=== PATIENT | female | born 2000 | race Two or more races ===

== ENCOUNTER 2019-03-16 11:37 | Emergency (ER) | payer OTHER ==
[~2019-03-16] VITALS: Ht 177.8 cm; Wt 72.7 kg
[2019-03-16] MEDS ORDERED: KETOROLAC 60 MG/2 ML VIAL (J1885) IM ONE (12:00)
--- NOTE | 2019-03-16 12:44 | REP ---
LEFT RIB SERIES: Four views of the left ribs performed. There is no evidence of fracture or bone lesion. An accompanying view of the chest demonstrates no acute infiltrate or pneumothorax. No pleural effusion is seen. The heart and mediastinum are within normal limits. IMPRESSION: Negative left rib series. Electronically Signed by Surendra Cleaning MD 03/16/2019 01:05 P
[2019-03-16] MEDS ORDERED: KETO10TAB PO (13:12)
[2019-03-16 13:18] VITALS: BP 109/58
== END 2019-03-16 13:19 | disposition home or self-care (01) ==
LOC: M ED 11:37
DX: M94.0 Chondrocostal junction syndrome [Tietze] (principal); Z88.0 Allergy status to penicillin
CPT/HCPCS: 71101; 96372; 99283; J1885

== ENCOUNTER → 2019-03-25 | Outpatient (CLI) | payer OTHER ==
[~2019-03-25] MED LIST: KETO10TAB PO
--- NOTE | 2019-03-25 20:34 | REP ---
CT CHEST WITHOUT IV CONTRAST: CT chest performed without IV contrast. Sagittal and coronal reconstruction images are performed. Both lungs are clear with no infiltrate. Heart is not enlarged. No axillary adenopathy is seen. There is no evidence of thoracic aortic aneurysm. There is no pleural or pericardial effusion. No gross mediastinal contour abnormality is seen. There does appear to be mild pectus excavatum and deformity, borderline moderate in severity. The Mukul index is approximately 3.2. IMPRESSION: Mild to moderate pectus excavatum deformity. Unreviewed
== END ==
LOC: M RAD 17:24
PROVIDERS: ATTEND Family Medicine
DX: Q67.6 Pectus excavatum (principal)

== ENCOUNTER → 2019-04-03 | Outpatient (REF) | payer OTHER | LOC: M SFHCLERA 11:07 | PROVIDERS: ATTEND Physician Assistant | DX: R50.9 Fever, unspecified (principal) ==

== ENCOUNTER → 2019-08-12 | Outpatient (CLI) | payer OTHER | LOC: M LABSMTC 13:11 | PROVIDERS: ATTEND Family Medicine | DX: Z11.59 Encounter for screening for other viral diseases (principal); Z20.828 Contact with and (suspected) exposure to other viral communicable diseases ==

== ENCOUNTER 2019-09-23 05:25 | Emergency (ER) | payer OTHER ==
[~2019-09-23] VITALS: Ht 180.3 cm; Wt 88.8 kg
[2019-09-23] MEDS ORDERED: PROT1TAB2 (05:50)
[2019-09-23 06:18] LABS: BASO # 0.1 10^3/uL (0.0-0.2); BASO % 0.7 % (0.0-1.0); EOS # 0.2 10^3/uL (0.0-0.5); HEMATOCRIT 41.1 % (36.0-47.0); HEMOGLOBIN 13.7 g/dl (12.0-15.5); LYMPH # 3.7 10^3/uL (1.5-5.0); LYMPH % 40.9 % (24.0-44.0); MEAN CORPUSCULAR HEMOGLOBIN 29.7 pg (27.0-33.0); MEAN CORPUSCULAR HGB CONC 33.3 g/dl (32.0-36.5); MEAN CORPUSCULAR VOLUME 89.2 fl (80.0-96.0); MONO # 0.7 10^3/uL (0.0-0.8); MONO % 8.2 % (0.0-5.0); NEUTROPHILS # 4.3 10^3/uL (1.5-8.5); NEUTROPHILS % 47.9 % (36.0-66.0); PLATELET COUNT, AUTOMATED 322 10^3/uL (150-450); RED BLOOD COUNT 4.61 10^6/uL (4.00-5.40)
[2019-09-23] MEDS ORDERED: ACETAMINOPHEN 325 MG TAB PO ONE (06:30)
[2019-09-23 06:46] LABS: HCG, SERUM QUALITATIVE NEGATIVE (NEGATIVE)
[2019-09-23 06:52] LABS: ALBUMIN 3.6 GM/DL (3.2-5.2); ALT/SGPT 61 U/L (12-78); BILIRUBIN,DIRECT < 0.1 MG/DL (0.0-0.2); BILIRUBIN,TOTAL 0.2 MG/DL (0.2-1.0); BLOOD UREA NITROGEN 14 MG/DL (7-18); CALCIUM LEVEL 9.1 MG/DL (8.5-10.1); CARBON DIOXIDE LEVEL 27 MEQ/L (21-32); CHLORIDE LEVEL 106 MEQ/L (98-107); GLOMERULAR FILTRATION RATE > 60.0 (>60); GLUCOSE, FASTING 89 MG/DL (70-100); LIPASE 268 U/L (73-393); SODIUM LEVEL 138 MEQ/L (136-145)
--- NOTE | 2019-09-23 07:00 | REPVR ---
PROCEDURE INFORMATION: Exam: US Pelvis Complete, Transabdominal and US Pelvis, Transvaginal Exam date and time: 09/23/2019 6:50 AM Age: 19 years old Clinical indication: Pelvic pain; Additional info: R sided pelvic pain TECHNIQUE: Imaging protocol: Real-time transabdominal and transvaginal pelvic ultrasound (complete) with image documentation. Transvaginal imaging was used for better evaluation of the endometrium and adnexa. COMPARISON: No relevant prior studies available. FINDINGS: Uterus/cervix: Uterus measures 6.3 x 2.9 x 3.4 cm. Endometrial stripe measures 4.3 mm in thickness. IUD in the uterus with the tip near the fundus. No uterine masses. Right adnexa: Right ovary measures 3.4 x 2.1 x 3.4 cm. No masses. Normal vascular flow. Left adnexa: Left ovary measures 3.5 x 2.0 x 3.0 cm. No masses. Normal vascular flow. Free fluid: None. Bladder: Bladder is unremarkable. IMPRESSION: 1. Unremarkable uterus. 2. IUD in the uterus. Electronically signed by: Aurea Person On 09/23/2019 07:00:21 AM
[2019-09-23] MEDS ORDERED: ISOVUE-370 76% 100ML VIAL As Ordered ONE (07:11)
--- NOTE | 2019-09-23 07:51 | REPVR ---
PROCEDURE INFORMATION: Exam: CT Abdomen And Pelvis With Contrast Exam date and time: 09/23/2019 7:19 AM Age: 19 years old Clinical indication: Abdominal pain; Localized; Right lower quadrant (rlq); Additional info: Rlq pain, negative US TECHNIQUE: Imaging protocol: Computed tomography of the abdomen and pelvis with intravenous contrast. Radiation optimization: All CT scans at this facility use at least one of these dose optimization techniques: automated exposure control; mA and/or kV adjustment per patient size (includes targeted exams where dose is matched to clinical indication); or iterative reconstruction. Contrast material: ISOVUE 370; Contrast volume: 100 ml; Contrast route: IV; COMPARISON: US PELVIC NON-OB COMPLETE 09/23/2019 6:29 AM FINDINGS: Liver: Normal. No mass. Gallbladder and bile ducts: Normal. No calcified stones. No ductal dilation. Pancreas: Normal. No ductal dilation. Spleen: Normal. No splenomegaly. Adrenals: Normal. No mass. Kidneys and ureters: Normal. No hydronephrosis. Stomach and bowel: Severe stool in the colon. No abnormal bowel dilatation. No abnormal bowel wall thickening. Negative for colonic diverticulitis. Appendix: Appendix is normal. Intraperitoneal space: Unremarkable. No free air. No significant fluid collection. Vasculature: Unremarkable. No abdominal aortic aneurysm. Lymph nodes: Unremarkable. No enlarged lymph nodes. Bladder: Unremarkable as visualized. Reproductive: IUD in the uterus. Bones/joints: No acute fracture. Pectus excavatum. Soft tissues: Unremarkable. IMPRESSION: 1. Appendix is unremarkable. 2. Severe stool in the colon. 3. No evidence of bowel obstruction. Electronically signed by: Aurea Person On 09/23/2019 07:50:53 AM
[2019-09-23 07:57] LABS: AMPHETAMINES LEVEL URINE NEGATIVE (NEGATIVE); BARBITURATES URINE NEGATIVE (NEGATIVE); BENZODIAZEPINES URINE NEGATIVE (NEGATIVE); CANNABINOIDS URINE NEGATIVE (NEGATIVE); COCAINE METABOLITE URINE NEGATIVE (NEGATIVE); METHADONE URINE NEGATIVE (NEGATIVE); OPIATES URINE NEGATIVE (NEGATIVE); PHENCYCLIDINE URINE NEGATIVE (NEGATIVE)
[2019-09-23 08:00] VITALS: BP 131/77
[2019-09-23] MEDS ORDERED: COLA100C5 PO (08:01)
[2019-09-23] MEDS ORDERED: GLYCERIN ADULT SUPP PR ONE (08:15)
[2019-09-23] MEDS ORDERED: MAGNESIUM CITRATE 300 ML BTL PO ONE (08:15)
== END 2019-09-23 08:29 | disposition home or self-care (01) ==
LOC: M ED 05:25
DX: K59.00 Constipation, unspecified (principal); R10.31 Right lower quadrant pain; R11.2 Nausea with vomiting, unspecified; F12.10 Cannabis abuse, uncomplicated; Z97.5 Presence of (intrauterine) contraceptive device; Z88.0 Allergy status to penicillin
CPT/HCPCS: 74177; 76830; 76856; 80048; 80076; 80307; 81001; 83690; 84703; 85025; 93041; 93976; 99284; Q9967

== ENCOUNTER 2019-11-16 11:51 | Emergency (ER) | payer OTHER ==
[~2019-11-16 11:51] MED LIST changes: +COLA100C5 PO; +PROT1TAB2
[2019-11-16] MEDS ORDERED: ONDANSETRON 4MG/2ML VIAL ONE (12:22)
[2019-11-16] MEDS ORDERED: ONDANSETRON 4MG/2ML VIAL As Ordered ONE (12:22)
[2019-12-13 19:55] LABS: HEMOGLOBIN 13.8 g/dl (12.0-15.5); MEAN CORPUSCULAR HEMOGLOBIN 29.6 pg (27.0-33.0); MEAN CORPUSCULAR HGB CONC 33.7 g/dl (32.0-36.5); PLATELET COUNT, AUTOMATED 249 10^3/uL (150-450); RED BLOOD COUNT 4.66 10^6/uL (4.00-5.40); WHITE BLOOD COUNT 7.1 10^3/uL (4.0-10.0)
[2019-12-13 20:01] LABS: APPEARANCE, URINE HAZY (CLEAR); BACTERIA, URINE AUTO 3+ (NEGATIVE); BILIRUBIN, URINE AUTO NEGATIVE (NEGATIVE); BLOOD, URINE BLOOD 1+ (NEGATIVE); COLOR, URINE YELLOW (YELLOW); GLUCOSE, URINE (UA) AUTO NEGATIVE (NEGATIVE); KETONE, URINE AUTO NEGATIVE (NEGATIVE); LEUKOCYTE ESTERASE, URINE AUTO TRACE (NEGATIVE); NITRITE, URINE AUTO NEGATIVE (NEGATIVE); PROTEIN, URINE AUTO NEGATIVE (NEGATIVE); RBC, URINE AUTO 1 /HPF (0-3); SPECIFIC GRAVITY URINE AUTO 1.013 (1.002-1.035); SQUAMOUS EPITHELIAL CELL UR AU 1 /HPF (0-6); UROBILINOGEN, URINE AUTO 0.2 mg/dL (0.0-2.0); WBC, URINE AUTO 4 /HPF (0-3)
[2019-12-13 20:05] LABS: INR 1.06; PROTHROMBIN TIME 14.1 SECONDS (11.8-14.0)
[2020-01-05 13:45] LABS: ALBUMIN 4.1 GM/DL (3.2-5.2); ALT/SGPT 27 U/L (12-78); BILIRUBIN,TOTAL 0.4 MG/DL (0.2-1.0); BLOOD UREA NITROGEN 13 MG/DL (7-18); CALCIUM LEVEL 9.4 MG/DL (8.5-10.1); CARBON DIOXIDE LEVEL 27 MEQ/L (21-32); CHLORIDE LEVEL 107 MEQ/L (98-107); CREATININE FOR GFR 0.85 MG/DL (0.55-1.30); GLOMERULAR FILTRATION RATE > 60.0 (>60); GLUCOSE, FASTING 97 MG/DL (70-100); POTASSIUM SERUM 3.9 MEQ/L (3.5-5.1); SODIUM LEVEL 137 MEQ/L (136-145); TOTAL PROTEIN 7.5 GM/DL (6.4-8.2)
[2020-01-13 15:47] LABS: HCG, SERUM QUALITATIVE NEGATIVE (NEGATIVE)
== END 2019-11-16 15:45 | disposition home or self-care (01) ==
LOC: M ED 11:51
DX: N83.201 Unspecified ovarian cyst, right side (principal); Z88.0 Allergy status to penicillin
CPT/HCPCS: 74176; 80053; 81001; 84703; 85027; 85610; 87086; 96374; 99284; J2405

== ENCOUNTER → 2019-11-30 | Outpatient (REF) | payer OTHER ==
[~2019-11-30] MED LIST changes: +GABA-845 PO; +IBUP-1022 PO; +KYLE19.5 IU; +METH1TAB40 PO
== END ==
LOC: M LAB REF 12:43
PROVIDERS: ATTEND Physician Assistant Medical
DX: Z20.828 Contact with and (suspected) exposure to other viral communicable diseases (principal)

== ENCOUNTER 2020-01-16 07:48 | Emergency (ER) | payer OTHER ==
[~2020-01-16] VITALS: Ht 180.3 cm; Wt 97.4 kg
[~2020-01-16 07:48] MED LIST changes: -GABA-845 PO; -IBUP-1022 PO; -KYLE19.5 IU; -METH1TAB40 PO
[2020-01-16] MEDS ORDERED: GABA-845 PO (07:59)
[2020-01-16] MEDS ORDERED: IBUP-1022 PO (07:59)
--- NOTE | 2020-01-16 08:44 | REPVR ---
PROCEDURE INFORMATION: Exam: XR Chest, 2 Views Exam date and time: 01/16/2020 8:09 AM Age: 19 years old Clinical indication: Chest pain; Additional info: Chest pain, SOB 7wk S/P fish bar TECHNIQUE: Imaging protocol: XR of the chest Views: 2 views. COMPARISON: CT Chest without contrast 03/25/2019 5:36 PM FINDINGS: Lungs: No acute infiltrate is seen. Pleural space: No pneumothorax or pleural effusion is seen. Heart/Mediastinum: No cardiomegaly. Bones/joints: The visualized osseous structures are unremarkable. No acute fracture or dislocation is seen. Other findings: A Fish bar is seen overlying the lower chest. IMPRESSION: No acute infiltrate, pneumothorax or pleural effusion is seen. Electronically signed by: Steve Garcia On 01/16/2020 08:44:01 AM
[2020-01-16] MEDS ORDERED: diazePAM 10MG/2ML SYRINGE (J3360 PER 5MG) IV ONE (09:00)
[2020-01-16] MEDS ORDERED: KETOROLAC 30 MG/ML 1ML VIAL IV ONE (09:00)
[2020-01-16] MEDS ORDERED: METH1TAB40 PO (10:22)
[2020-01-16] MEDS ORDERED: KYLE19.5 IU (10:24)
[2020-01-16] MEDS ORDERED: ISOVUE-370 76% 100ML VIAL As Ordered ONE (11:33)
--- NOTE | 2020-01-16 12:15 | REPVR ---
PROCEDURE INFORMATION: Exam: CT Angiography Chest With Contrast Exam date and time: 01/16/2020 11:40 AM Age: 19 years old Clinical indication: Chest pain; Type not specified; Prior surgery; Surgery date: 1-6 months; Surgery type: Frederic placed for pectus excavatum; Additional info: R/O post-op pe TECHNIQUE: Imaging protocol: Computed tomographic angiography of the chest with intravenous contrast. 3D rendering (Not supervised by radiologist): MIP and/or 3D reconstructed images were created by the technologist. Radiation optimization: All CT scans at this facility use at least one of these dose optimization techniques: automated exposure control; mA and/or kV adjustment per patient size (includes targeted exams where dose is matched to clinical indication); or iterative reconstruction. Contrast material: ISOVUE 370; Contrast volume: 75 ml; Contrast route: INTRAVENOUS (IV); COMPARISON: CT Chest without contrast 03/25/2019 5:36 PM FINDINGS: Pulmonary arteries: The pulmonary arteries are adequately opacified. No evidence of pulmonary embolism in the main, central, lobar or segmental pulmonary arteries. Aorta: Unremarkable. No aortic aneurysm. No aortic dissection. Lungs: Mild patchy infiltrate/atelectasis in both lung bases. Remainder of the lungs are clear. Pleural space: Moderate new bilateral pleural effusions. Heart: No cardiomegaly. No pericardial effusion. Lymph nodes: No enlarged lymph nodes. Bones/joints: Unremarkable. No acute fracture. Soft tissues: Examination demonstrates a Geena bar in the anterior lower chest with metallic beam hardening artifact limiting evaluation in this region. IMPRESSION: 1. The pulmonary arteries are adequately opacified. No evidence of pulmonary embolism in the main, central, lobar or segmental pulmonary arteries. 2. Moderate new bilateral pleural effusions. 3. Mild patchy infiltrate/atelectasis in both lung bases. Remainder of the lungs are clear. 4. Examination demonstrates a Geena bar in the anterior lower chest with metallic beam hardening artifact limiting evaluation in this region. Electronically signed by: Steve Garcia On 01/16/2020 12:14:25 PM
[2020-01-16 15:40] VITALS: BP 106/64
--- NOTE | 2020-01-18 07:17 | ED PDOC ---
Post-Departure Follow-Up dr williamson faxed formal report of cta chest for fu Kamila Wilder MD Jan 18, 2020 07:17
== END 2020-01-16 15:43 | disposition home or self-care (01) ==
LOC: M ED 07:48
DX: J90 Pleural effusion, not elsewhere classified (principal); Z88.0 Allergy status to penicillin
CPT/HCPCS: 36415; 71046; 71275; 80047; 96374; 96375; 99285; J1885; J3360; Q9967

== ENCOUNTER → 2021-04-20 | Outpatient (CLI) | payer OTHER ==
[~2021-04-20] MED LIST changes: +GABA-283 PO; +IBUP-1022 PO; +KYLE19.5 IU; +METH-1164 PO
== END ==
LOC: M WUC 13:02
PROVIDERS: ATTEND Physician Assistant
DX: R05.9 Cough, unspecified (principal); R53.83 Other fatigue; Z53.9 Procedure and treatment not carried out, unspecified reason

== ENCOUNTER → 2021-04-21 | Outpatient (REF) | payer OTHER | LOC: M WUC 15:48 | PROVIDERS: ATTEND Physician Assistant | DX: R05.9 Cough, unspecified (principal) ==

== ENCOUNTER → 2021-04-21 | Outpatient (CLI) | payer OTHER ==
[2021-04-21 16:05] LABS: BASO % 0.4 % (0.0-1.0); EOS # 0.2 10^3/uL (0.0-0.5); EOS % 1.5 % (0.0-3.0); HEMATOCRIT 41.1 % (36.0-47.0); HEMOGLOBIN 13.8 g/dl (12.0-15.5); LYMPH # 3.1 10^3/uL (1.5-5.0); LYMPH % 30.8 % (24.0-44.0); MEAN CORPUSCULAR HEMOGLOBIN 29.2 pg (27.0-33.0); MEAN CORPUSCULAR HGB CONC 33.6 g/dl (32.0-36.5); MEAN CORPUSCULAR VOLUME 86.9 fl (80.0-96.0); MONO # 0.8 10^3/uL (0.0-0.8); MONO % 8.3 % (2.0-8.0); NEUTROPHILS # 5.9 10^3/uL (1.5-8.5); NEUTROPHILS % 58.4 % (36.0-66.0); PLATELET COUNT, AUTOMATED 339 10^3/uL (150-450); RED BLOOD COUNT 4.73 10^6/uL (4.00-5.40); WHITE BLOOD COUNT 10.1 10^3/uL (4.0-10.0)
[2021-04-21 16:43] LABS: ALBUMIN 3.7 GM/DL (3.2-5.2); ALT/SGPT 21 U/L (12-78); BILIRUBIN,TOTAL 0.2 MG/DL (0.2-1.0); BLOOD UREA NITROGEN 21 MG/DL (7-18); CALCIUM LEVEL 8.9 MG/DL (8.5-10.1); CARBON DIOXIDE LEVEL 25 MEQ/L (21-32); CHLORIDE LEVEL 111 MEQ/L (98-107); CREATININE FOR GFR 0.81 MG/DL (0.55-1.30); FREE T4 0.83 NG/DL (0.76-1.46); GLOMERULAR FILTRATION RATE > 60.0 (>60); GLUCOSE, FASTING 91 MG/DL (70-100); POTASSIUM SERUM 4.5 MEQ/L (3.5-5.1); SODIUM LEVEL 140 MEQ/L (136-145); TOTAL PROTEIN 7.4 GM/DL (6.4-8.2)
[2021-04-24 16:08] LABS: EBV VIRAL CAPSID AG IgG 51.4 U/mL (0.0-17.9); EBV VIRAL CAPSID AG IgM <36.0 U/mL (0.0-35.9); Lyme Disease IgG/IgM Antibodie <0.91 ISR (0.00-0.90); Lyme Disease IgM Ab Quantitati <0.80 index (0.00-0.79)
== END ==
LOC: M WUC 13:26
PROVIDERS: ATTEND Physician Assistant
DX: R53.83 Other fatigue (principal); R05.9 Cough, unspecified

== ENCOUNTER → 2022-08-28 | Outpatient (CLI) | payer OTHER | LOC: M LAB 09:36 | PROVIDERS: ATTEND Family Medicine | DX: Z01.84 Encounter for antibody response examination (principal) ==

== ENCOUNTER → 2023-05-08 | Outpatient (CLI) | payer OTHER ==
[~2023-05-08] MED LIST changes: -GABA-283 PO; +GABA-284 PO
== END ==
LOC: M RAD 09:55
PROVIDERS: ATTEND Family Medicine
DX: N92.6 Irregular menstruation, unspecified (principal)

== ENCOUNTER 2023-06-10 10:12 | Emergency (ER) | payer OTHER ==
[~2023-06-10] VITALS: Ht 177.8 cm; Wt 113.5 kg
[2023-06-10] MEDS ORDERED: AMPH1CAP16 (10:33)
[2023-06-10 11:39] LABS: BASO # 0.1 10^3/uL (0.0-0.2); BASO % 0.6 % (0.0-1.0); EOS # 0.1 10^3/uL (0.0-0.5); EOS % 0.8 % (0.0-3.0); HEMATOCRIT 42.7 % (36.0-47.0); HEMOGLOBIN 14.5 g/dl (12.0-15.5); LYMPH # 3.2 10^3/uL (1.5-5.0); LYMPH % 38.5 % (24.0-44.0); MEAN CORPUSCULAR VOLUME 88.4 fl (80.0-96.0); MONO # 0.7 10^3/uL (0.0-0.8); MONO % 8.6 % (2.0-8.0); NEUTROPHILS # 4.3 10^3/uL (1.5-8.5); NEUTROPHILS % 51.3 % (36.0-66.0); PLATELET COUNT, AUTOMATED 309 10^3/uL (150-450); RED BLOOD COUNT 4.83 10^6/uL (4.00-5.40); WHITE BLOOD COUNT 8.4 10^3/uL (4.0-10.0)
[2023-06-10 11:56] LABS: APPEARANCE, URINE CLOUDY (CLEAR); BACTERIA, URINE AUTO 1+ (NEGATIVE); BILIRUBIN, URINE AUTO NEGATIVE (NEGATIVE); BLOOD, URINE BLOOD 3+ (NEGATIVE); COLOR, URINE YELLOW (YELLOW); GLUCOSE, URINE (UA) AUTO 1+ mg/dL (NEGATIVE); KETONE, URINE AUTO NEGATIVE (NEGATIVE); LEUKOCYTE ESTERASE, URINE AUTO NEGATIVE (NEGATIVE); MUCUS, URINE SMALL (NEGATIVE); NITRITE, URINE AUTO POSITIVE (NEGATIVE); PROTEIN, URINE AUTO 1+ mg/dL (NEGATIVE); RBC, URINE AUTO 2 /HPF (0-3); SPECIFIC GRAVITY URINE AUTO 1.028 (1.002-1.035); SQUAMOUS EPITHELIAL CELL UR AU 17 /HPF (0-6); UROBILINOGEN, URINE AUTO 0.2 mg/dL (0.0-2.0); WBC, URINE AUTO 1 /HPF (0-3)
[2023-06-10 12:12] LABS: BLOOD UREA NITROGEN 16 MG/DL (9-23); CALCIUM LEVEL 9.3 MG/DL (8.5-10.1); CARBON DIOXIDE LEVEL 24 MMOL/L (20-31); CHLORIDE LEVEL 108 MMOL/L (98-107); CREATININE FOR GFR 0.75 MG/DL (0.55-1.30); GLOMERULAR FILTRATION RATE > 60.0 (>60); GLUCOSE, FASTING 86 MG/DL (60-100); HCG, SERUM QUANTITATIVE < 2.6 MIU/ML (<4.2); POTASSIUM SERUM 4.5 MMOL/L (3.5-5.1); SODIUM LEVEL 138 MMOL/L (136-145)
[2023-06-10] MEDS ORDERED: CIPR-249 PO (14:16)
[2023-06-10 14:36] VITALS: BP 162/58; TEMP 98.1; O2SAT 99
[2023-06-10 14:44] LABS: Trichomonas vaginalis (AMP) NOT DETECTED (NEGATIVE)
[2023-06-10 15:07] LABS: GC DNA AMPLIFICATION NEGATIVE (NEGATIVE)
== END 2023-06-10 14:35 | disposition home or self-care (01) ==
LOC: M ED 10:12
DX: N39.0 Urinary tract infection, site not specified (principal); N93.9 Abnormal uterine and vaginal bleeding, unspecified; E28.2 Polycystic ovarian syndrome; F12.10 Cannabis abuse, uncomplicated; F10.10 Alcohol abuse, uncomplicated; Z88.0 Allergy status to penicillin; Z79.2 Long term (current) use of antibiotics; Z79.899 Other long term (current) drug therapy

== ENCOUNTER → 2023-07-17 | Outpatient (CLI) | payer OTHER ==
[~2023-07-17] MED LIST changes: +AMPH1CAP16; +CIPR-249 PO
[2023-07-17 12:51] LABS: BASO # 0.1 10^3/uL (0.0-0.2); BASO % 0.7 % (0.0-1.0); EOS # 0.1 10^3/uL (0.0-0.5); EOS % 1.3 % (0.0-3.0); HEMATOCRIT 42.3 % (36.0-47.0); HEMOGLOBIN 14.4 g/dl (12.0-15.5); LYMPH # 2.8 10^3/uL (1.5-5.0); LYMPH % 39.3 % (24.0-44.0); MEAN CORPUSCULAR VOLUME 88.1 fl (80.0-96.0); MONO # 0.5 10^3/uL (0.0-0.8); MONO % 7.3 % (2.0-8.0); NEUTROPHILS # 3.6 10^3/uL (1.5-8.5); NEUTROPHILS % 51.3 % (36.0-66.0); PLATELET COUNT, AUTOMATED 303 10^3/uL (150-450)
[2023-07-17 13:06] LABS: HEMOGLOBIN A1c 5.3 % (4.0-6.0)
[2023-07-17 13:07] LABS: ALBUMIN 3.7 G/DL (3.2-5.2); ALKALINE PHOSPHATASE 73 U/L (46-116); ALT/SGPT 24 U/L (7.0-40); AST/SGOT 15 U/L (<34); BILIRUBIN,TOTAL 0.2 MG/DL (0.3-1.2); BLOOD UREA NITROGEN 22 MG/DL (9-23); CALCIUM LEVEL 9.7 MG/DL (8.5-10.1); CARBON DIOXIDE LEVEL 24 MMOL/L (20-31); CHLORIDE LEVEL 109 MMOL/L (98-107); CHOLESTEROL LEVEL 212 MG/DL (<200); CREATININE FOR GFR 0.74 MG/DL (0.55-1.30); GLOMERULAR FILTRATION RATE > 60.0 (>60); GLUCOSE, FASTING 93 MG/DL (60-100); HDL CHOLESTEROL 50.4 MG/DL (>40); LDL CHOLESTEROL 129.2 MG/DL (<100); NON-HDL-C 161.6 MG/DL; POTASSIUM SERUM 4.5 MMOL/L (3.5-5.1); SODIUM LEVEL 137 MMOL/L (136-145); TOTAL PROTEIN 7.1 G/DL (5.7-8.2); TRIGLYCERIDES LEVEL 162 MG/DL (<150)
[2023-07-17 13:08] LABS: FREE T4 0.91 NG/DL (0.89-1.76)
[2023-07-17 13:09] LABS: HCG, SERUM QUALITATIVE NEGATIVE (NEGATIVE); THYROID STIMULATING HORMONE 3.107 uIU/ML (0.55-4.78)
== END ==
LOC: M LAB 11:04
PROVIDERS: ATTEND Family Medicine
DX: N92.6 Irregular menstruation, unspecified (principal); E66.9 Obesity, unspecified; M79.644 Pain in right finger(s); Z68.37 Body mass index [BMI] 37.0-37.9, adult

== ENCOUNTER 2023-11-29 12:53 | Day surgery (SDC) | payer OTHER ==
[~2023-11-29] VITALS: Ht 177.8 cm; Wt 112.8 kg
[~2023-11-29 12:53] MED LIST changes: +MIDAZOLAM INJ 2MG/2ML VIAL As Ordered ONE; +fentaNYL 100 MCG/2 ML INJECTION As Ordered ONE
[2023-11-29] MEDS ORDERED: LR 1,000 ML IV SCH ×2 (13:10→15:35)
[2023-11-29 13:53] LABS: HEMATOCRIT 41.1 % (36.0-47.0); HEMOGLOBIN 14.1 g/dl (12.0-15.5); MEAN CORPUSCULAR HEMOGLOBIN 29.9 pg (27.0-33.0); MEAN CORPUSCULAR HGB CONC 34.3 g/dl (32.0-36.5); MEAN CORPUSCULAR VOLUME 87.3 fl (80.0-96.0); PLATELET COUNT, AUTOMATED 317 10^3/uL (150-450); RED BLOOD COUNT 4.71 10^6/uL (4.00-5.40); WHITE BLOOD COUNT 7.6 10^3/uL (4.0-10.0)
[2023-11-29] MEDS ORDERED: ROCURONIUM BROMIDE 50MG/5ML VIAL As Ordered ONE (13:53)
[2023-11-29] MEDS ORDERED: LIDOCAINE 2% 100MG/5ML SDV (FOR ANES.) As Ordered ONE (14:00)
[2023-11-29] MEDS ORDERED: ONDANSETRON 4MG 2ML VIAL As Ordered ONE (14:00)
[2023-11-29] MEDS ORDERED: propofoL 200 MG/20 ML VIAL As Ordered ONE (14:00)
[2023-11-29] MEDS ORDERED: ACETAMINOPHEN 1000MG 100ML IV BAG As Ordered ONE (14:03)
[2023-11-29] MEDS ORDERED: SUGAMMADEX SODIUM 500 MG/5 ML VIAL (BRIDION) As Ordered ONE (14:03)
[2023-11-29] MEDS ORDERED: KETOROLAC 60MG 2ML VIAL As Ordered ONE (14:03)
[2023-11-29] MEDS ORDERED: PHENYLephrine 500MCG 5ML (100MCG/ML) SYRINGE As Ordered ONE (14:52)
[2023-11-29] MEDS ORDERED: ePHEDrine SULFATE 25 MG/5 ML(5MG/ML) SYRINGE As Ordered ONE (14:52)
[2023-11-29] MEDS ORDERED: GLYCOPYRROLATE INJ 0.2 MG/ML 2 ML VIAL As Ordered ONE (14:56)
[2023-11-29] MEDS ORDERED: HYDROmorphone HCL 2MG/ML 1ML VIAL As Ordered ONE (15:11)
[2023-11-29] MEDS ORDERED: oxyCODONE 5MG TAB PO PRN (15:35)
[2023-11-29] MEDS ORDERED: HYDROMORPHONE HCL 0.5 MG/ 0.5 ML SYRINGE IV PRN (15:35)
[2023-11-29] MEDS ORDERED: fentaNYL 100 MCG/2 ML INJECTION IV PRN (15:35)
[2023-11-29] MEDS: ONDANSETRON 4MG 2ML VIAL IV PRN (16:25)
[2023-11-29 18:10] VITALS: BP 138/66; TEMP 94.3; O2SAT 97
== END 2023-11-29 18:45 | disposition home or self-care (01) ==
LOC: M SDC 12:53
PROVIDERS: ATTEND Obstetrics & Gynecology
DX: Z30.2 Encounter for sterilization (principal); Z88.0 Allergy status to penicillin; F41.9 Anxiety disorder, unspecified; F32.A Depression, unspecified; Z79.899 Other long term (current) drug therapy
CPT/HCPCS: 36415; 58661; 81025; 85027; 86850; 86900; 86901; 88302; J0131; J0665; J1100; J1170; J1596; J1885; J2250; J2371; J2405; J3010

== ENCOUNTER 2024-01-08 11:57 | Emergency (ER) | payer OTHER ==
[~2024-01-08] VITALS: Ht 177.8 cm; Wt 115.3 kg
[~2024-01-08 11:57] MED LIST changes: -MIDAZOLAM INJ 2MG/2ML VIAL As Ordered ONE; -fentaNYL 100 MCG/2 ML INJECTION As Ordered ONE
[2024-01-08] MEDS: IBUPROFEN 600MG TAB PO ONE (15:36)
[2024-01-08] MEDS ORDERED: IBUP-1022 PO (18:12)
[2024-01-08 18:19] VITALS: BP 133/93; TEMP 97.9; O2SAT 99
== END 2024-01-08 18:24 | disposition home or self-care (01) ==
LOC: M ED 11:57
DX: S06.0X0A Concussion without loss of consciousness, initial encounter (principal); S00.532A Contusion of oral cavity, initial encounter; Y92.9 Unspecified place or not applicable; Y93.9 Activity, unspecified; Y99.0 Civilian activity done for income or pay; F90.9 Attention-deficit hyperactivity disorder, unspecified type; Z88.0 Allergy status to penicillin; Z91.018 Allergy to other foods; Z79.1 Long term (current) use of non-steroidal anti-inflammatories (NSAID)

== ENCOUNTER → 2024-06-15 | Outpatient (CLI) | payer OTHER, SELFPAY ==
[2024-06-15 11:55] LABS: BASO # 0.1 10^3/uL (0.0-0.2); BASO % 0.8 % (0.0-1.0); EOS # 0.1 10^3/uL (0.0-0.5); EOS % 1.6 % (0.0-3.0); HEMATOCRIT 42.4 % (36.0-47.0); HEMOGLOBIN 14.4 g/dl (12.0-15.5); LYMPH # 2.3 10^3/uL (1.5-5.0); LYMPH % 30.9 % (24.0-44.0); MEAN CORPUSCULAR HEMOGLOBIN 30.2 pg (27.0-33.0); MEAN CORPUSCULAR VOLUME 88.9 fl (80.0-96.0); MONO # 0.5 10^3/uL (0.0-0.8); MONO % 7.4 % (2.0-8.0); NEUTROPHILS # 4.3 10^3/uL (1.5-8.5); PLATELET COUNT, AUTOMATED 292 10^3/uL (150-450); RED BLOOD COUNT 4.77 10^6/uL (4.00-5.40); WHITE BLOOD COUNT 7.3 10^3/uL (4.0-10.0)
[2024-06-15 12:22] LABS: FOLATE 11.64 NG/ML (>5.4); FREE T4 1.09 NG/DL (0.89-1.76); THYROID STIMULATING HORMONE 1.568 uIU/ML (0.55-4.78)
[2024-06-15 12:23] LABS: VITAMIN B12 LEVEL 364 PG/ML (211-911)
[2024-06-15 12:24] LABS: TOTAL 25(OH) VITAMIN D 19.8 NG/ML (20.0-100.0)
[2024-06-15 12:25] LABS: ALBUMIN 3.7 G/DL (3.2-5.2); ALKALINE PHOSPHATASE 62 U/L (35-104); ALT/SGPT 28 U/L (7.0-40); AST/SGOT 17 U/L (<34); BILIRUBIN,TOTAL 0.5 MG/DL (0.3-1.2); BLOOD UREA NITROGEN 15 MG/DL (9-23); CALCIUM LEVEL 9.4 MG/DL (8.5-10.1); CARBON DIOXIDE LEVEL 26 MMOL/L (20-31); CHLORIDE LEVEL 108 MMOL/L (98-107); CHOLESTEROL LEVEL 240 MG/DL (<200); CREATININE FOR GFR 0.76 MG/DL (0.55-1.30); GLOMERULAR FILTRATION RATE > 60.0 (>60); GLUCOSE, FASTING 93 MG/DL (60-100); HDL CHOLESTEROL 52.1 MG/DL (>40); LDL CHOLESTEROL 160.9 MG/DL (<100); NON-HDL-C 187.9 MG/DL; POTASSIUM SERUM 4.2 MMOL/L (3.5-5.1); SODIUM LEVEL 141 MMOL/L (136-145); TOTAL PROTEIN 7.3 G/DL (5.7-8.2); TRIGLYCERIDES LEVEL 135 MG/DL (<150)
== END ==
LOC: M LAB 11:08
PROVIDERS: ATTEND Family Medicine
DX: Z00.00 Encounter for general adult medical examination without abnormal findings (principal); E28.2 Polycystic ovarian syndrome

== ENCOUNTER → 2025-03-03 | Outpatient (REF) | payer OTHER ==
[~2025-03-03] MED LIST changes: -IBUP-1022 PO; +IBUP600T42 PO
[2025-03-03 17:24] LABS: APPEARANCE, URINE CLEAR (CLEAR); BACTERIA, URINE AUTO 1+ (NEGATIVE); BILIRUBIN, URINE AUTO NEGATIVE (NEGATIVE); BLOOD, URINE BLOOD 1+ (NEGATIVE); GLUCOSE, URINE (UA) AUTO NEGATIVE (NEGATIVE); KETONE, URINE AUTO NEGATIVE (NEGATIVE); LEUKOCYTE ESTERASE, URINE AUTO NEGATIVE (NEGATIVE); MUCUS, URINE SMALL (NEGATIVE); NITRITE, URINE AUTO NEGATIVE (NEGATIVE); PROTEIN, URINE AUTO NEGATIVE (NEGATIVE); RBC, URINE AUTO 1 /HPF (0-3); SPECIFIC GRAVITY URINE AUTO 1.030 (1.002-1.035); SQUAMOUS EPITHELIAL CELL UR AU 2 /HPF (0-6); UROBILINOGEN, URINE AUTO 0.2 mg/dL (0.0-2.0); WBC, URINE AUTO 1 /HPF (0-3)
[2025-03-04 10:48] LABS: GC DNA AMPLIFICATION NEGATIVE (NEGATIVE)
== END ==
LOC: M SFHCLERA 17:00 → M SFHCLACO 17:00
PROVIDERS: ATTEND Family Medicine
DX: R30.0 Dysuria (principal); Z11.3 Encounter for screening for infections with a predominantly sexual mode of transmission